=== PATIENT | female | born 1985 | race Hispanic/Latino ===

== ENCOUNTER 2023-04-24 11:10 | Emergency (ER) | payer OTHER ==
[~2023-04-24] VITALS: Ht 157.5 cm; Wt 84.8 kg
[2023-04-24] MEDS ORDERED: LORAZEPAM 1 MG TAB PO ONE (11:45)
[2023-04-24] MEDS ORDERED: LORAZEPAM 0.5 MG TAB ONE (11:57)
[2023-04-24] MEDS ORDERED: ATIVAN1 MG PO (11:58)
[2023-04-24] MEDS ORDERED: LORAZEPAM 0.5 MG TAB PO PRN (12:15)
[2023-04-24 12:24] VITALS: O2SAT 98
== END 2023-04-24 12:24 | disposition home or self-care (01) ==
LOC: FSED 11:32
DX: F10.20 Alcohol dependence, uncomplicated (principal)
CPT/HCPCS: 99283